=== PATIENT | female | born 1950 | race Caucasian/White ===

== ENCOUNTER 2024-06-16 08:59 | Emergency (ER) | payer MEDICARE, SELFPAY ==
[2024-06-16 09:14] VITALS: BP 116/59; PULSE 72; RESP 17; TEMP 36.9; O2SAT 95
--- NOTE | 2024-06-16 09:17 | ED_ITS ---
HPI - Female Genitourinary General Chief complaint: Recheck/Abnormal Lab/Rx Stated complaint: needs cath put in per pt Time Seen by Provider: 06/16/24 09:10 History of Present Illness HPI Narrative: Patient is a 73-year-old female with Parkinson's wheelchair-bound and deep brain stimulator. She and her are visiting here from [facility]. For her trip her physician allowed her to have a catheter placed for ease of travel. While she was here it did become dislodged. They are due for travel again in 2 days in like another catheter placed. She has not had any new or worsening pain. No confusion no fever no abdominal pain or other symptoms Related Data Home Medications Medication Instructions Recorded Confirmed carbidopa 25 mg-levodopa 100 mg 1.5 tab PO 06/16/24 tablet Allergies Allergy/AdvReac Type Severity Reaction Status Date / Time INGREDIENT: NKDA - NO KNOWN Allergy Unknown Uncoded 06/16/24 09:18 DRUG ALLERGIES Exam Initial Vital Signs Initial Vital Signs: Vital Signs Temperature 98.5 F 06/16/24 09:14 Pulse Rate 72 06/16/24 09:14 Respiratory Rate 17 06/16/24 09:14 Blood Pressure 116/59 L 06/16/24 09:14 Pulse Oximetry 95 06/16/24 09:14 Oxygen Delivery Method Room Air 06/16/24 09:14 GENERAL: Alert pleasant 73-year-old female and in no acute distress. HEENT: Head atraumatic,EOMI, pupils reactive, face symmetric, moist mucous membranes CARDIOVASCULAR: Regular rate and rhythm without murmurs, rubs or gallops. RESPIRATORY: Breath sounds equal bilaterally, no wheezes rales or rhonchi. ABDOMEN: Soft, nontender. Normoactive bowel sounds all 4 quadrants. No guarding or rebound. EXTREMITIES: Normal range of motion, no clubbing or edema. Neurovascularly intact NEUROLOGICAL: Alert and oriented x4. Parkinson's features SKIN: Warm, dry, no laceration, no petechiae, no rashes or lesions. Course Vital Signs Vital signs: Vital Signs - 8 hr 06/16/24 09:14 Temperature 98.5 F Pulse Rate 72 Respiratory Rate 17 Blood Pressure 116/59 L Pulse Oximetry 95 Oxygen Delivery Method Room Air MDM - Female Genitourinary MDM Narrative Medical decision making narrative: Patient is 73-year-old female here for catheter placement. They are due to travel in a couple days back home. They were here visiting grandchildren. No signs or symptoms or other complaints. Simply needs [place] catheter placement for travel. It was easily placed patient given supplies. Discharge Plan Departure Patient Disposition: Home Clinical Impression: [place] catheter problem, Encounter for ureteral catheter placement Activity Restrictions/Additional Instructions: *You have been diagnosed with catheter placement *What to do: At this time please follow-up with your primary care provider for further instructions and removal of catheter *Continue to take medications as directed *Follow up with your primary care provider in 2-3 days or call [phone] *Return to ER if you should have any new, worsening or concerning symptoms Prescriptions: No Action carbidopa-levodopa 25-100 mg tablet 1.5 tab PO Stand Alone Forms: Patient Portal/API
== END 2024-06-16 09:57 | disposition home or self-care (01) ==
PROVIDERS: Emergency Provider Emergency Medicine
DX: T83.021A Displacement of indwelling urethral catheter, initial encounter (principal); Z46.6 Encounter for fitting and adjustment of urinary device
CPT/HCPCS: 99283